=== PATIENT | male | born 2000 | race African-American/Black ===

== ENCOUNTER 2020-03-19 10:25 | Emergency (ER) | payer OTHER ==
[2020-03-19 10:33] VITALS: BP 125/85; PULSE 59; TEMP 98.1; BMI 32.3
--- NOTE | 2020-03-19 10:36 | PDOC ---
Rapid Medical Evaluation Medical Evaluation: 03/19/20 10:30 19 yo M denies pmhx states 4 days ago he noticed a small about of blood from penile meatus and pain before urinating. denies any further episodes of blood, testicular pain, penile pain, rectal pain, abd pain, dysuria, penile discharge. VSS ambulatory A/P: blood from penile meatus 4 days ago to ED for further eval
[2020-03-19] MEDS ORDERED: AZITHROMYCIN 250 MG TABLET PO ONE (11:24)
[2020-03-19] MEDS ORDERED: AZITHROMYCIN 250 MG TABLET ONE (11:44)
[2020-03-19 11:48] LABS: EPI CELLS 17 /uL (0-25.1); HYALINE CASTS 5 /uL (0-3.1); PH,URINE 5.5 (5.0-8.0); URINE APPEARANCE CLEAR; URINE BACTERIA 63 /uL (0-1359); URINE BILIRUBIN NEGATIVE (NEGATIVE); URINE COLOR YELLOW; URINE GLUCOSE (UA) NEGATIVE (NEGATIVE); URINE KETONE NEGATIVE (NEGATIVE); URINE LEUK ESTERASE 1+ (NEGATIVE); URINE NITRITE NEGATIVE (NEGATIVE); URINE PROTEIN NEGATIVE (NEGATIVE); URINE RBC 13 /uL (0-23.9); URINE WBC 66 /uL (0-25.8)
--- NOTE | 2020-03-19 11:52 | PDOC ---
History of Present Illness - General Chief Complaint: Penile Drainage Stated Complaint: PAIN Time Seen by Provider: 03/19/20 10:41 History Source: Patient - History of Present Illness Timing/Duration: reports: constant Past History - Medical History Allergies/Adverse Reactions: Allergies Allergy/AdvReac Type Severity Reaction Status Date / Time No Known Allergies Allergy Verified 03/19/20 10:33 Home Medications: Ambulatory Orders Ciprofloxacin HCl [Cipro] 500 mg PO BID #14 tablet 03/19/20 COPD: No - Psycho-Social/Smoking History Smoking History: Current every day smoker Have you smoked in the past 12 months: Yes Information on smoking cessation initiated: Yes - Substance Abuse Hx (Audit-C & DAST Scrn) How often the patient has a drink containing alcohol: Never Score: In Men: 4 or > Positive; In Women: 3 or > Positive: 0 Screen Result (Pos requires Nsg. Audit-10AR): Negative In the last yr the pt used illegal drug/Rx for NonMed reason: No Score: Yes response is considered Positive: 0 Screen Result (Positive result requires Nsg. DAST-10): Negative Review of Systems - Review of Systems Constitutional: No: Chills, Fever : Yes: Burning, Dysuria, Discharge, Hematuria. No: Flank Pain, Testicular Swelling, Lesions, Testicular Pain *Physical Exam - Vital Signs Last Vital Signs Temp Pulse Resp BP Pulse Ox 98.1 F 59 L 18 125/85 97 03/19/20 10:28 03/19/20 10:28 03/19/20 10:28 03/19/20 10:28 03/19/20 10:28 - Physical Exam General Appearance: Yes: Appropriately Dressed. No: Apparent Distress HEENT: positive: Normal Voice Neck: positive: Supple Respiratory/Chest: negative: Respiratory Distress Integumentary: positive: Dry, Warm Neurologic: positive: Fully Oriented, Alert, Normal Mood/Affect Medical Decision Making - Medical Decision Making 03/19/20 11:46 19 yo M, sexually active with girlfriend, here w/ penile discharge w/ dysuria. Also c/o 1 e/o hematuria. No testes pain/swelling, lesions, f/c. No h/o STD per pt. GF w/ no complaints and currently see exam Possible STD -Given ceftriaxone and azithro -Abx prescribed for ? UTI given dysuria and 1+ LE and >60 wbc and back -To f/u on cxs Discharge - Discharge Information Problems reviewed: Yes Clinical Impression/Diagnosis: Urethritis Condition: Good Disposition: HOME - Additional Discharge Information Prescriptions: Ciprofloxacin HCl [Cipro] 500 mg PO BID #14 tablet - Follow up/Referral Referrals: Aracelis Reis [Primary Care Provider] - - Patient Discharge Instructions Patient Printed Discharge Instructions: Urethritis Additional Instructions: You were treated for a possible STD and possible UTI Your test results will come back in 3-5 days. We call with positive results. otherwise you can call us at [phone] If your test comes back positive, inform your partner to be treated as well Refrain from sexual activity until symptoms resolve Take antibiotics as directed - Post Discharge Activity
== END 2020-03-19 11:58 | disposition home or self-care (01) ==
LOC: JERFT 10:25
PROC: 3E0234Z Introduction of Serum, Toxoid and Vaccine into Muscle, Percutaneous Approach (ICD-10-PCS; principal; 2020-03-19)
DX: N34.1 Nonspecific urethritis (principal)
CPT/HCPCS: 36415; 81003; 87086; 87491; 87591; 96372; 99284-25